=== PATIENT | male | born 1990 | race African-American/Black ===

== ENCOUNTER 2024-10-21 22:27 | Emergency (ER) | payer MEDICAID, OTHER ==
[~2024-10-21] VITALS: Ht 172.7 cm; Wt 84.0 kg
[2024-10-21 22:29] VITALS: O2SAT 100
[2024-10-21 22:35] VITALS: BP 103/68; PULSE 65; RESP 18; TEMP 36.9; O2SAT 99
[2024-10-21 23:56] LABS: EOSINOPHILS % 3.9 % (0.0-5.0); HEMATOCRIT. 44.6 % (42.0-52.0); LYMPHOCYTES % 46.9 % (20.0-50.0); MEAN CORPUSCULAR HEMOGLOBIN 30.8 pg (28.0-32.0); MEAN CORPUSCULAR HGB CONC 33.6 g/dL (31.0-37.0); MEAN CORPUSCULAR VOLUME 91.7 fL (80.0-94.0); MEAN PLATELET VOLUME 7.5 fl (7.4-10.4); NEUTROPHILS % 42.2 % (40.0-76.0); PLATELET 284 x1000/uL (130-400); RED BLOOD CELL COUNT 4.86 mill/uL (4.7-6.1); RED CELL DISTRIBUTION WIDTH 13.9 % (11.6-14.6); WHITE BLOOD COUNT 5.4 x1000/uL (4.5-11.0)
[2024-10-22 00:02] LABS: CHLORIDE 107 mEq/L (98-107); POTASSIUM 3.7 mEq/L (3.5-5.1); SODIUM 142 mEq/L (136-145)
[2024-10-22 00:03] LABS: CALCIUM 9.1 mg/dL (8.7-10.4); CARBON DIOXIDE 28 mEq/L (21-32)
[2024-10-22 00:07] LABS: CREATININE 1.1 mg/dL (0.6-1.3)
[2024-10-22 00:08] LABS: GLUCOSE 131 mg/dL (70-105); UREA NITROGEN BLOOD 8 mg/dL (9-23)
[2024-10-22 02:02] LABS: TROPONIN I HIGH SENSITIVITY 6 ng/L (3.0-53)
== END 2024-10-22 02:30 | disposition home or self-care (01) ==
LOC: ER 22:27
DX: R07.89 Other chest pain (principal); Z98.890 Other specified postprocedural states
CPT/HCPCS: 36415; 71045; 80048; 84484; 85025; 93005; 99285